=== PATIENT | female | born 1995 | race Caucasian/White ===

== ENCOUNTER 2016-11-05 14:33 | Emergency (ER) | payer OTHER ==
[2016-11-05 15:55] VITALS: BP 113/82
[2016-11-05] MEDS ORDERED: Ibuprofen TAB* 800 MG PO ONE (17:11)
[2016-11-05] MEDS ORDERED: Benzonatate CAP* 100 MG PO ONE (17:12)
[2016-11-05] MEDS ORDERED: Ibuprofen TAB* 400 MG ONE (17:17)
--- NOTE | 2016-11-05 18:08 | UC ---
FLU HPI - HPI Summary HPI Summary: ONE WEEK OF BODY ACHES, COUGH, SORE THROAT, FEVER. BODY ACHES AND CHILLS WORSE SINCE YESTERDAY. - History of Current Complaint Chief Complaint: UCRespiratory Stated Complaint: COUGH Time Seen by Provider: 11/05/16 15:59 Hx Obtained From: Patient Hx Last Menstrual Period: last week Onset/Duration: Gradual Onset, Lasting Weeks, Worse Since - YESTERDAY Severity Currently: Moderate Severity Initially: Mild Pain Intensity: 5 Pain Scale Used: 0-10 Numeric Associated Signs & Symptoms: Positive: Fever, F/C, Myalgia, Cough, Sore Throat, Nasal Congestion Related Hx: Possible Flu/Infectious Exposure - Allergy/Home Medications Allergies/Adverse Reactions: Allergies Allergy/AdvReac Type Severity Reaction Status Date / Time No Known Allergies Allergy Verified 06/27/16 21:16 Home Medications: Home Medications Ascorbic Acid [Vitamin C] 1 tab PO DAILY 11/05/16 [History Confirmed 11/05/16] Ibuprofen TAB* [Advil TAB*] 400 mg PO PRN 11/05/16 [History] PMH/Surg Hx/FS Hx/Imm Hx Previously Healthy: Yes Neurological History Of: Reports: Migraine - Surgical History Surgical History: None - Family History Known Family History: Positive: None, Other - mother has vertigo - Social History Occupation: Student Lives: With Family Alcohol Use: None Substance Use Type: None Smoking Status (MU): Never Smoked Tobacco Review of Systems Constitutional: Fever, Chills Skin: Negative Eyes: Negative ENT: Sore Throat Respiratory: Cough Cardiovascular: Negative Gastrointestinal: Negative Genitourinary: Negative Motor: Negative Neurovascular: Negative Musculoskeletal: Myalgia Neurological: Negative Psychological: Negative All Other Systems Reviewed And Are Negative: Yes Physical Exam Triage Information Reviewed: Yes Appearance: Well-Appearing, No Pain Distress, Well-Nourished Vital Signs: Initial Vital Signs Temp 99.5 F 11/05/16 15:46 Pulse 90 11/05/16 15:46 Resp 18 11/05/16 15:46 BP 113/82 11/05/16 15:46 Pulse Ox 97 11/05/16 15:46 Vital Signs Reviewed: Yes Eye Exam: Normal ENT: Positive: Hearing grossly normal, Pharyngeal erythema, Nasal congestion, TMs normal, Tonsillar swelling Dental Exam: Normal Neck exam: Normal Neck: Positive: Supple, Nontender, No Lymphadenopathy. Negative: Nuchal Rigidity, Tenderness @ Respiratory Exam: Normal Respiratory: Positive: Chest non-tender, Lungs clear, Normal breath sounds, No respiratory distress, No accessory muscle use Cardiovascular Exam: Normal Cardiovascular: Positive: RRR, No Murmur, Pulses Normal, Brisk Capillary Refill Abdominal Exam: Normal Abdomen Description: Positive: Nontender, No Organomegaly, Soft Musculoskeletal Exam: Normal Musculoskeletal: Positive: Strength Intact Neurological Exam: Normal Psychological Exam: Normal Skin Exam: Normal Flu Course/Dx - Differential Dx/Diagnosis Differential Diagnosis/HQI/PQRI: Influenza, Upper Respiratory Infection, Other - MONO STREP Provider Diagnoses: INFLUENZA Discharge - Discharge Plan Condition: Stable Disposition: HOME Prescriptions: Benzonatate CAP* [Tessalon CAP*] 100 mg PO TID PRN #15 cap PRN Reason: Cough Patient Education Materials: Influenza (ED) Forms: *School Release Referrals: [facility] MICHELLE Sagastume [Primary Care Provider] -
== END 2016-11-05 17:43 | disposition home or self-care (01) ==
LOC: UCEAST 14:33
DX: J11.1 Influenza due to unidentified influenza virus with other respiratory manifestations (principal)
CPT/HCPCS: 87502; 87651; 99212; A9270-GY; G0463

== ENCOUNTER 2016-11-12 16:45 | Emergency (ER) | payer OTHER ==
[2016-11-12 17:33] VITALS: BP 116/64
--- NOTE | 2016-11-12 19:22 | UC ---
Throat Pain/Nasal Andres HPI - HPI Summary HPI Summary: 20 year old female presents today complaining of cough, nasal congestion and sore throat that started to get worse 2 days ago. Patient states she was diagnosed with the flu last week 11/05/16 and the fever and body aches have improved since however the congestion has seemed to have gotten worse. She admits to upper chest congestion but denies difficulty breathing and chest pain. She does admit to a productive cough producing green/yellow sputum and feeling fatigued/drained. She has not tried taking anything. Denies sinus pressure/pain. Also states she has been having frequent nosebleeds. - History of Current Complaint Chief Complaint: UCRespiratory Stated Complaint: COLD SYMPTOMS Time Seen by Provider: 11/12/16 18:16 Hx Obtained From: Patient Hx Last Menstrual Period: 2 WEEKS AGO ?: No Onset/Duration: Sudden Onset, Lasting Days Severity: Mild Pain Intensity: 6 Pain Scale Used: 0-10 Numeric Cough: Productive Associated Signs & Symptoms: Positive: Dysphagia, Nasal Discharge. Negative: Wheezing, Hoarseness, Fever - Allergies/Home Medications Allergies/Adverse Reactions: Allergies Allergy/AdvReac Type Severity Reaction Status Date / Time No Known Allergies Allergy Verified 11/12/16 17:33 PMH/Surg Hx/FS Hx/Imm Hx Previously Healthy: Yes Neurological History Of: Reports: Migraine - Surgical History Surgical History: None - Family History Known Family History: Positive: None, Other - mother has vertigo - Social History Alcohol Use: None Substance Use Type: None Smoking Status (MU): Never Smoked Tobacco Review of Systems Constitutional: Fatigue Skin: Negative Eyes: Negative ENT: Sore Throat, Nasal Discharge Respiratory: Cough Cardiovascular: Negative Gastrointestinal: Negative Genitourinary: Negative Motor: Negative Neurovascular: Negative Musculoskeletal: Myalgia Neurological: Headache Psychological: Negative All Other Systems Reviewed And Are Negative: Yes Physical Exam Triage Information Reviewed: Yes Appearance: Well-Appearing, No Pain Distress, Well-Nourished Vital Signs: Initial Vital Signs Temp 98.9 F 11/12/16 17:30 Pulse 73 11/12/16 17:30 Resp 16 11/12/16 17:30 BP 116/64 11/12/16 17:30 Pulse Ox 100 11/12/16 17:30 Vital Signs Reviewed: Yes Eyes: Positive: Conjunctiva Clear ENT: Positive: Hearing grossly normal, Pharyngeal erythema, Nasal congestion, Nasal drainage, TMs normal, Tonsillar swelling, Tonsillar exudate - 1 white patch exudate versus tonsil stone Dental: Negative: Percussion Tenderness @, Cervical Lymphadenopathy Neck: Positive: Supple, Nontender, No Lymphadenopathy Respiratory: Positive: Chest non-tender, Lungs clear, Normal breath sounds, No respiratory distress Cardiovascular: Positive: RRR, No Murmur, Pulses Normal, Brisk Capillary Refill Abdominal Exam: Normal Musculoskeletal Exam: Normal Neurological Exam: Normal Psychological Exam: Normal Skin Exam: Normal Throat Pain/Nasal Course/Dx - Course Course Of Treatment: strep test was done due to PE findings. patient states she always has enlarged tonsils since she was younger. was told she did not need her tonsils removed. strep was negative. patient will be instructed to use OTC medications. will be given prescribed flonase. also encouraged to gargle with salt water for ST and tonsil stone. follow up with pcp. - Differential Dx/Diagnosis Differential Diagnosis/HQI/PQRI: Influenza, Otitis Media, Pharyngitis, Sinusitis , URI, Other Provider Diagnoses: rhinosinusitis, acute viral bronchitis Discharge - Discharge Plan Condition: Stable Disposition: HOME Prescriptions: Fluticasone NASAL SPRAY 50MCG* [Flonase NASAL SPRAY 50MCG*] 2 spray BOTH NARES DAILY #1 btl Patient Education Materials: Rhinosinusitis (ED), Acute Bronchitis (ED) Referrals: [facility] MICHELLE Sagastume [Primary Care Provider] - Additional Instructions: Use nasal spray to help with nasal congestion as prescribed. You may also want to get Mucinex, Saline spray/Rinses, and Zicam OTC to help relieve symptoms and quicken recovery and help with bloody noses. Chloraseptic spray helps with throat soreness. If you can, get a humidifier to help with bloody nose and take hot showers. Gargle with salt water to help with sore throat and tonsil stone. If symptoms worsen or do not get better in 7-10 days or you develop a fever please return or follow up with your primary care doctor.
== END 2016-11-12 19:30 | disposition home or self-care (01) ==
LOC: UCEAST 16:45
DX: J32.9 Chronic sinusitis, unspecified (principal); J20.8 Acute bronchitis due to other specified organisms
CPT/HCPCS: 87651; 99212; G0463

== ENCOUNTER 2017-11-02 15:27 | Emergency (ER) | payer OTHER, BC ==
[2017-11-02 16:06] VITALS: BP 113/82
--- NOTE | 2017-11-02 16:26 | UC ---
Throat Pain/Nasal Andres HPI - HPI Summary HPI Summary: Pt presents accompanied by her mother with complaints of fever, cough, sore throat, and body aches for 4 days. Pt tells me that she was seen at [facility] and tested positive for the flu, but was not given treatment - she was told that her body would "fight it off". She is here with worsening symptoms, of which the cough bothers her most. Has been taking tylenol and mucinex with mild relief. Denies SOB, chest pain, abdominal pain, n/v/d/c. 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 Hx Last Menstrual Period: IUD ?: No Onset/Duration: Gradual Onset Severity: Moderate Pain Intensity: 7 Pain Scale Used: 0-10 Numeric Cough: Nonproductive - Allergies/Home Medications Allergies/Adverse Reactions: Allergies Allergy/AdvReac Type Severity Reaction Status Date / Time No Known Allergies Allergy Verified 11/02/17 16:06 Home Medications: Home Medications Acetaminophen [Tylenol] 1,000 mg PO BID 11/02/17 [History Confirmed 11/02/17] [id number] W/ APAP [Mucinex Fast-Max Cold/Flu 1-01-726-325 mg] 1 tab PO ONCE 11/02/17 [History Confirmed 11/02/17] PMH/Surg Hx/FS Hx/Imm Hx Previously Healthy: Yes - Surgical History Surgical History: None - Family History Known Family History: Positive: None, Other - mother has vertigo - Social History Occupation: Student Lives: Dormitory/Roommates Alcohol Use: Occasionally Substance Use Type: None Smoking Status (MU): Never Smoked Tobacco Review of Systems Constitutional: Fever, Fatigue, Other - Body aches Skin: Negative Eyes: Negative ENT: Sore Throat Respiratory: Cough Cardiovascular: Negative Gastrointestinal: Negative Neurovascular: Negative Musculoskeletal: Negative Neurological: Negative Psychological: Negative All Other Systems Reviewed And Are Negative: Yes Physical Exam Triage Information Reviewed: Yes Appearance: No Pain Distress, Well-Nourished, Ill-Appearing Vital Signs: Initial Vital Signs Temp 99.8 F 11/02/17 16:01 Pulse 92 11/02/17 16:01 Resp 18 11/02/17 16:01 BP 113/82 11/02/17 16:01 Pulse Ox 98 11/02/17 16:01 Vital Signs Reviewed: Yes Eyes: Positive: Conjunctiva Clear. Negative: Conjunctiva Inflamed, Discharge ENT: Positive: Hearing grossly normal, Pharyngeal erythema, TMs normal, Tonsillar swelling - 3+, Uvula midline. Negative: Nasal congestion, Nasal drainage, TM bulging, TM dull, TM red, Tonsillar exudate, Hoarse voice, Sinus tenderness Neck: Positive: Supple, Nontender, No Lymphadenopathy Respiratory: Positive: Chest non-tender, Lungs clear, Normal breath sounds, No respiratory distress, No accessory muscle use Cardiovascular: Positive: RRR, No Murmur, Pulses Normal Abdomen Description: Positive: Nontender, No Organomegaly, Soft. Negative: CVA Tenderness (R), CVA Tenderness (L), Distended, Guarding Bowel Sounds: Positive: Present Neurological: Positive: Alert Psychological: Positive: Age Appropriate Behavior Skin: Negative: rashes Throat Pain/Nasal Course/Dx - Course Course Of Treatment: POC strep negative. Influenza and tonsillitis. Tamiflu, prednisone, and tessalon. - Differential Dx/Diagnosis Provider Diagnoses: Influenza. Tonsillitis Discharge - Discharge Plan Condition: Stable Disposition: HOME Prescriptions: Benzonatate CAP* [Tessalon 100 MG CAP*] 100 mg PO TID PRN #21 cap PRN Reason: Cough Oseltamivir CAP* [Tamiflu CAP*] 75 mg PO BID #10 cap predniSONE TAB* [Deltasone TAB*] 20 mg PO BID #10 tab Patient Education Materials: Influenza (ED), Tonsillitis (ED) Forms: *School Release Referrals: [facility] - Zeus DUMONT [Primary Care Provider] - Additional Instructions: If you develop a fever, shortness of breath, chest pain, new or worsening symptoms - please call your PCP or go to the ED.
== END 2017-11-02 16:54 | disposition home or self-care (01) ==
LOC: UCEAST 15:27
DX: J11.1 Influenza due to unidentified influenza virus with other respiratory manifestations (principal); J03.90 Acute tonsillitis, unspecified
CPT/HCPCS: 87651; 99212; G0463

== ENCOUNTER 2017-11-19 10:24 | Emergency (ER) | payer OTHER, BC | END 2017-11-19 14:49 | disposition left against medical advice (07) | LOC: UCEAST 10:24 | DX: J02.9 Acute pharyngitis, unspecified (principal); Z53.21 Procedure and treatment not carried out due to patient leaving prior to being seen by health care provider ==

== ENCOUNTER 2017-12-06 09:04 | Emergency (ER) | payer BC, OTHER ==
--- NOTE | 2017-12-06 10:01 | UC ---
Throat Pain/Nasal Andres HPI - HPI Summary HPI Summary: Pt presents with sore throat. She tells me that about 2 weeks ago she had a sore throat and was diagnosed with strep and placed on Amoxicillin for 10 days. Her symptoms improved for about 3 days until yesterday when her sore throat returned. Today was much worse and she has significant pain with swallowing. Says she had a fever of 101F. She is able to eat and drink. Denies headache, cough, SOB, chest pain, abdominal pain, n/v/d/c. - History of Current Complaint Hx Obtained From: Patient Hx Last Menstrual Period: iud ?: No Onset/Duration: Gradual Onset Severity: Moderate Pain Intensity: 8 Pain Scale Used: 0-10 Numeric <Randolph Foley - Last Filed: 12/06/17 13:20> <Nikki Vernon - Last Filed: 12/08/17 18:48> - History of Current Complaint Chief Complaint: UCGeneralIllness Stated Complaint: SORE THROAT,FEVER Time Seen by Provider: 12/06/17 10:01 - Allergies/Home Medications Allergies/Adverse Reactions: Allergies Allergy/AdvReac Type Severity Reaction Status Date / Time No Known Allergies Allergy Verified 12/06/17 09:33 PMH/Surg Hx/FS Hx/Imm Hx Previously Healthy: Yes - Surgical History Surgical History: None - Family History Known Family History: Positive: None, Other - mother has vertigo - Social History Occupation: Student Lives: Dormitory/Roommates Alcohol Use: Rare Substance Use Type: None Smoking Status (MU): Never Smoked Tobacco <Randolph Foley - Last Filed: 12/06/17 13:20> Review of Systems Constitutional: Fever Skin: Negative Eyes: Negative ENT: Sore Throat Respiratory: Negative Cardiovascular: Negative Gastrointestinal: Negative Musculoskeletal: Negative Neurological: Negative Psychological: Negative All Other Systems Reviewed And Are Negative: Yes <Randolph Foley - Last Filed: 12/06/17 13:20> Physical Exam - Summary Physical Exam Summary: GENERAL: Mildly ill-appearing. NAD. WDWN. No pain distress. SKIN: No rashes, sores, ulcers, masses, lesions. No clubbing or cyanosis. HEENT: Head: AT/NC Eyes: Conjunctiva clear without inflammation or discharge. Ears: Hearing grossly normal. TMs intact, no bulging, erythema, or edema. Nose: Nasal mucosa pink and moist. NTTP maxillary and frontal sinus. Throat: Posterior oropharynx moderate erythema and 3+ tonsillar enlargement. No exudates. Uvula midline. No hoarse voice or muffled voice. NECK: Tonsillar TTP with mild lymphadenopathy. Supple. CHEST: CTAB. No r/r/w. No accessory muscle use. Breathing comfortably and in no distress. CV: RRR. Without m/r/g. Pulses intact. Brisk cap refill. NEURO: Alert. Appears fatigued. CN II-XII grossly intact. PSYCH: Age appropriate behavior. Triage Information Reviewed: Yes Vital Signs: Initial Vital Signs Temp 100.2 F 12/06/17 09:35 Pulse 86 12/06/17 09:35 Resp 12/06/17 09:35 BP 138/62 12/06/17 09:35 Pulse Ox 100 12/06/17 09:35 <Randolph Foley - Last Filed: 12/06/17 13:20> Vital Signs: Initial Vital Signs Temp 100.2 F 12/06/17 09:35 Pulse 86 12/06/17 09:35 Resp 18 12/06/17 09:35 BP 138/62 12/06/17 09:35 Pulse Ox 100 12/06/17 09:35 <Nikki Vernon - Last Filed: 12/08/17 18:48> Throat Pain/Nasal Course/Dx - Course Course Of Treatment: POC strep positive. 1L of fluids and Ceftriaxone 1gm in clinic today. Will rx for augmentin and prednisone. Advised to wash everything and change toothbrush. - Differential Dx/Diagnosis Provider Diagnoses: Strep pharyngitis <Randolph Foley - Last Filed: 12/06/17 13:20> Discharge <Randolph Foley - Last Filed: 12/06/17 13:20> <Nikki Vernon - Last Filed: 12/08/17 18:48> - Discharge Plan Condition: Stable Disposition: HOME Prescriptions: Amoxicillin/Clavulanate TAB* [Augmentin TAB 875*] 875 mg PO BID #20 tab predniSONE TAB* [Deltasone TAB*] 50 mg PO DAILY #5 tab Patient Education Materials: Strep Throat (DC) Forms: *School Release Referrals: [facility] - Zeus DUMONT [Primary Care Provider] - Additional Instructions: If you develop a fever, shortness of breath, chest pain, new or worsening symptoms - please call your PCP or go to the ED. Your blood pressure was high at todays visit. Please see your primary provider within 4 weeks for recheck and re-evaluation. Attestation Statement User Type: Provider - I was available for consult. This patient was seen by the AMANDA. The patient was not presented to, seen by, or examined by me. Ankita <Nikki Vernon - Last Filed: 12/08/17 18:48>
[2017-12-06] MEDS ORDERED: NS 0.9% 1000 ML* 1,000 ML IV ONE (10:11)
[2017-12-06] MEDS ORDERED: cefTRIAXone VIAL(*) 1,000 MG VIAL IVPB ONE (10:12)
[2017-12-06 11:39] VITALS: BP 118/59
[2017-12-06] MEDS ORDERED: Ibuprofen TAB* 600 MG PO ONE (11:40)
== END 2017-12-06 11:50 | disposition home or self-care (01) ==
LOC: UCEAST 09:04
DX: Z51.89 Encounter for other specified aftercare (principal); J02.0 Streptococcal pharyngitis
CPT/HCPCS: 87651; 96360; 96365; 99212; A9270-GY; G0463; J0696

== ENCOUNTER 2018-01-02 19:27 | Emergency (ER) | payer BC ==
--- NOTE | 2018-01-02 19:39 | UC ---
Complaint Female HPI - HPI Summary HPI Summary: Pt presents with ?infected hairs to pubic area. She tells me that she gets a bikini wax every 3-4 weeks, but the last time she had one - about a week later she noticed red inflamed spots in her pubic region. Most have faded, but 2-3 are persisting over the last week. She is sexually active, but has had the same partner since July and feels that they are faithful. She also had a full STD workup in Oct of this year which was negative. Denies fever, chills, vaginal pain/discharge/odor, or dysuria. - History Of Current Complaint Stated Complaint: PERSONAL Time Seen by Provider: 01/02/18 19:39 Hx Obtained From: Patient Hx Last Menstrual Period: iud Onset/Duration: Gradual Onset Timing: Constant Severity Currently: None - Allergies/Home Medications Allergies/Adverse Reactions: Allergies Allergy/AdvReac Type Severity Reaction Status Date / Time No Known Allergies Allergy Verified 01/02/18 19:43 PMH/Surg Hx/FS Hx/Imm Hx Previously Healthy: Yes - Surgical History Surgical History: None - Family History Known Family History: Positive: None, Other - mother has vertigo - Social History Occupation: Student Lives: Dormitory/Roommates Alcohol Use: Rare Substance Use Type: None Smoking Status (MU): Never Smoked Tobacco Review of Systems Constitutional: Negative Skin: Other - Pustules to pubic region Respiratory: Negative Cardiovascular: Negative Genitourinary: Negative Neurological: Negative Psychological: Negative All Other Systems Reviewed And Are Negative: Yes Physical Exam Triage Information Reviewed: Yes Appearance: Well-Appearing, No Pain Distress, Well-Nourished Vital Signs Reviewed: Yes Neck: Positive: Supple, Nontender, No Lymphadenopathy Respiratory: Positive: Lungs clear, Normal breath sounds, No respiratory distress, No accessory muscle use Cardiovascular: Positive: RRR, No Murmur, Pulses Normal Pelvic Exam: Positive: External Exam Normal. Negative: Lesions Neurological: Positive: Alert Psychological: Positive: Age Appropriate Behavior Skin: Positive: Other - Three pustules <2mm in size with central hair. No ulcerations, erythema, edema, or bleeding. Complaint Female Dx - Course Course Of Treatment: Folliculitis very mild - no treatment at this time. Appear to be healing. F/u prn - Differential Dx/Diagnosis Provider Diagnoses: Folliculitis Discharge - Sign-Out/Discharge Documenting (check all that apply): Discharge - Discharge Plan Condition: Stable Disposition: HOME Patient Education Materials: Folliculitis (ED) Referrals: [facility] - Zeus DUMONT [Primary Care Provider] - Additional Instructions: If you develop a fever, shortness of breath, chest pain, new or worsening symptoms - please call your PCP or go to the ED. - Billing Disposition and Condition Condition: STABLE Disposition: HOME
[2018-01-02 19:43] VITALS: BP 124/86
== END 2018-01-02 20:00 | disposition home or self-care (01) ==
LOC: UCEAST 19:27
DX: L73.9 Follicular disorder, unspecified (principal)
CPT/HCPCS: 99211; G0463

== ENCOUNTER 2018-07-25 19:23 | Emergency (ER) | payer BC ==
--- NOTE | 2018-07-25 19:29 | UC ---
Laceration HPI - HPI Summary HPI Summary: 22 yo female presents with chin laceration. She tells me that she was doing hot yoga with her friend - was going a "chipewwa" pose and slipped on the sweaty floor. She fell forward and her chin impacted the floor. She sustained a small chin laceration. She bandaged the area and came to urgent care. Unsure when her last tetanus was. - History Of Current Complaint Stated Complaint: CHIN LAC Time Seen by Provider: 07/25/18 19:27 Hx Obtained From: Patient Hx Last Menstrual Period: iud Laceration Location: Face Mechanism Of Injury: Blunt Trauma Onset/Duration: Sudden Onset Severity: Mild Pain Intensity: 1 Pain Scale Used: 0-10 Numeric - Allergies/Home Medications Allergies/Adverse Reactions: Allergies Allergy/AdvReac Type Severity Reaction Status Date / Time No Known Allergies Allergy Verified 07/25/18 19:35 PMH/Surg Hx/FS Hx/Imm Hx - Additional Past Medical History Additional PMH: None - Surgical History Surgical History: None Surgery Procedure, Year, and Place: denies - Family History Known Family History: Positive: None - Social History Occupation: Student Lives: Dormitory/Roommates Alcohol Use: Rare Substance Use Type: None Smoking Status (MU): Never Smoked Tobacco Review of Systems Constitutional: Negative Skin: Other - Chin laceration Eyes: Negative ENT: Negative Respiratory: Negative Cardiovascular: Negative Neurovascular: Negative Neurological: Negative Psychological: Negative All Other Systems Reviewed And Are Negative: Yes Physical Exam - Summary Physical Exam Summary: GENERAL: NAD. WDWN. No pain distress. SKIN: 6mm linear chin laceration partially through the dermis. Clean without FB. CHEST: No accessory muscle use. Breathing comfortably and in no distress. CV: Pulses intact. Cap refill <2seconds NEURO: Alert. PSYCH: Age appropriate behavior. Triage Information Reviewed: Yes Vital Signs: Vital Signs: Temp Pulse Resp BP Pulse Ox 98.2 F 72 12 110/74 100 07/25/18 19:31 07/25/18 19:31 07/25/18 19:31 07/25/18 19:31 07/25/18 19:31 Vital Signs Reviewed: Yes Laceration Repair - Laceration Repair 1 Description: Linear Laceration Size After Repair: Length (cm) - 0.6 Modified For Repair: No Type Injection: Local Anesthesia Used: 2.0% Lido Cleansing Completed Via Routine Prep: Yes Closure Material: Sutures - TWO 6-0 Closure Method: Single Layer Suture Of: Skin Suture Type: Prolene Laceration Course/Dx - Course/Dx Course Of Treatment: The procedure was explained to the pt and all questions were answered. A time out was performed, witnessed, and signed. The area was irrigated with 100mL sterile saline. 1mL of 2% lidocaine without epi was administered and good anesthetization was achieved. In the usual sterile fashion , TWO 6-0 prolene interrupted sutures were placed. The wound was bandaged with a band-aid. Pt tolerated procedure well. tdap was updated today - Differential Dx - Laceration/Wound Provider Diagnoses: Chin laceration Discharge - Sign-Out/Discharge Documenting (check all that apply): Patient Departure All imaging exams completed and their final reports reviewed: No Studies - Discharge Plan Condition: Stable Disposition: HOME Patient Education Materials: Care For Your Stitches (DC), Laceration (ED) Referrals: [facility] - Zeus DUMONT [Primary Care Provider] - Additional Instructions: If you develop a fever, shortness of breath, chest pain, new or worsening symptoms - please call your PCP or go to the ED. 1) Please keep the area bandaged, clean, dry, and intact until tomorrow. Then apply a band-aid if you are going to be active 2) If you develop a fever, colored or thick discharge, increased pain or swelling - please call your PCP or go to the ED. 3) Please return in 4-5 days to have your TWO sutures removed. - Billing Disposition and Condition Condition: STABLE Disposition: Home
[2018-07-25 19:34] VITALS: BP 110/74
[2018-07-25] MEDS ORDERED: Tetan/Diph/Pertus SYR(Tdap)* 0.5 ML SYR(BOOSTRIX) use SYR IM ONE (19:40)
[2018-07-25] MEDS ORDERED: Lidocaine 2% PF * 5 ML VIAL INJ ONE (19:46)
== END 2018-07-25 20:21 | disposition home or self-care (01) ==
LOC: UCEAST 19:23
DX: S01.81XA Laceration without foreign body of other part of head, initial encounter (principal); W01.0XXA Fall on same level from slipping, tripping and stumbling without subsequent striking against object, initial encounter; Y93.42 Activity, yoga; Y92.9 Unspecified place or not applicable; Z23 Encounter for immunization
CPT/HCPCS: 12011; 90471; 90715; 99211; G0463